=== PATIENT | male | born 1965 | race Caucasian/White ===

== ENCOUNTER 2016-06-02 20:11 | Emergency (ER) | payer SELFPAY ==
--- NOTE | 2016-06-02 21:29 | ED CLINICAL REPORT ---
Clinical Report - Physicians/Mid Levels [facility] [address] [place] [address] 06/02/2016 20:12 Patient: ROMAINE CORRAL Time Seen: 21:07. Arrived- By private vehicle. Historian- patient. HISTORY OF PRESENT ILLNESS Chief Complaint: JOINT PAIN. At its maximum, severity described as 10 / 10. When seen in the E.D., severity described as 10 / 10. This started many months ago and is still present. It was gradual in onset and has been constant and waxing/waning. (patient presents with complaints of chronic pain. He says he has pain in both of his knees as well s left shoulder. He said that this been going on for several months at least. 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 He presents requesting treatment for the pain.). REVIEW OF SYSTEMS No chills, fever, sweats, calf pain or chest pain. No cough, difficulty breathing, pedal edema, palpitations or abdominal pain. No constipation, diarrhea, nausea, vomiting or urinary problems. The patient has had pre-existing numbness of the left arm. All systems otherwise negative, except as recorded above. PAST HISTORY Problems: Myocardial Infarction. Arthritis. Medications: Ibuprofen Oral. Allergies: No Known Drug Allergy. SOCIAL HISTORY Current every day heavy tobacco smoker (cigarette)- 1 pack per day. Regular alcohol use. No drug use. FAMILY HISTORY Denies family medical history. ADDITIONAL NOTES The nursing notes have been reviewed. PHYSICAL EXAM Vital Signs: 06/02/2016 20:22 BP: 154/98. HR: 89. RR: 20. O2 saturation: 99%. Temp: 97.8 F. Pain level now: 10/10. Have been reviewed. Appearance: Alert. Eyes: Pupils equal, round and reactive to light. ENT: Pharynx normal. Neck: Neck supple. CVS: Normal heart rate and rhythm. Heart sounds normal. Respiratory: No respiratory distress. Breath sounds normal. Abdomen: No visible injury. Soft and nontender. Bowel sounds normal. No organomegaly. No mass. Back: Normal inspection. Skin: Skin warm and dry. Normal skin color. No rash. Normal skin turgor. Extremities: No calf tenderness. Left shoulder. No erythema, tenderness, swelling, laceration or ecchymosis. No joint effusion or limitation in ROM. Right knee. Neurovascular intact distally. No ligamentous laxity present. No joint effusion. No erythema, tenderness, swelling or ecchymosis. Left knee: moderate tenderness and swelling located in the posterior knee. Neurovascular intact distally. No ligamentous laxity present. No joint effusion. No limitation in ROM. Extremities atraumatic. PROGRESS AND PROCEDURES Course of Care: Patient is stable. Patient/family counseled. Old medical records reviewed. Disposition: Discharged. Condition: stable. CLINICAL IMPRESSION Chronic osteoarthritis. Ordonez's cyst; left knee. INSTRUCTIONS No driving or operating machinery while taking medication. Warnings: Further evaluation is necessary. GENERAL WARNINGS: Return or contact your physician immediately if your condition worsens or changes unexpectedly, if not improving as expected, or if other problems arise. Prescription Medications: Ultram 50 mg tablets: take 1-2 orally every 6 hours as needed for pain. Dispense twenty (20). No refills. Substitution is permissible. Follow-up: Follow up with an orthopedic surgeon- as recommended by your primary care physician- as scheduled. Understanding of the discharge instructions verbalized by patient. Follow-up with: [facility], , , [address], [place] [address] Follow up in seven days. Call for the next available appointment. (Electronically signed by Dorian Islas MD 06/05/2016 2:01)
--- NOTE | 2016-06-02 21:29 | ED NURSING NOTES ---
Clinical Report - Nurses [facility] [address] [place] [address] 06/02/2016 20:12 Patient: ROMAINE CORRAL TRIAGE Acuity: LEVEL 4. Chief Complaint: JOINT PAIN and ARM PAIN. Alert. No acute distress. SEPSIS SCREEN: Sepsis Screen. Negative (no infection suspected/documented). WHITNEY COMA SCORE: Whitney Coma Scale: 15- eyes open spontaneously (4); best verbal response- oriented x 4 (5); best motor response- obeys commands (6). --20:27 Amna Wong R.N. 20:22 06/02/16. BP: 154/98. HR: 89. RR: 20. O2 saturation: 99% on room air. Temp: 97.8 F (oral). Pain level now: 01/21. --20:27 Amna Wong R.N. Weight: 65.7 kg stated. Height/Length: 73 inches Per Patient. BMI: 19.1. --20:24 Amna Wong R.N. Medications Ibuprofen Oral. --20:23 Amna Wong R.N. Medication/allergy information source: the patient. --20:27 Amna Wong R.N. Allergies No Known Drug Allergy. --20:24 Amna Wong R.N. History Arrived by private vehicle. Historian: patient. Accompanied by (raymond). Onset. (months ago). ( Pt reports left shoulder pain and arm numbness "for four months." He also reports bilateral knee pain.). SOCIAL HX: Current every day heavy tobacco smoker- 1 pack per day. Regular alcohol use. No drug use. FALL RISK ASSESSMENT: Fall risk assessment completed. No fall risk identified. NUTRITIONAL RISK ASSESSMENT: The nutritional risk assessment revealed no deficiencies. FUNCTIONAL ASSESSMENT: Functional assessment: no impairments noted. LEARNING NEEDS ASSESSMENT: The learning needs assessment revealed no barriers. SKIN INTEGRITY ASSESSMENT: Skin integrity risk assessment completed. No skin integrity risk identified. --20:27 Amna Wong R.N. PROBLEMS: Myocardial Infarction. Arthritis. --20:24 Amna Wong R.N. Assessment GENERAL / NEURO / PSYCH: Alert. Oriented X 4. Appears in no acute distress. Patient appears calm and cooperative. RESPIRATORY: Respirations not labored. CVS: Capillary refill less than 2 seconds. GI / : Abdomen soft and nontender. SKIN: Mucous membranes are pink. Skin is warm and dry. --20:27 Amna Wong R.N. Interventions ID band on patient. To treatment room. --20:27 Amna Wong R.N. PHYSICAL ASSESSMENT 20:27 06/02/16. Ambulatory to room. GENERAL / NEURO / PSYCH: Alert. Oriented X 4. Appears in no acute distress. HEENT: Pupils equal, round and reactive to light. No facial asymmetry noted. Mucous membranes are pink. RESPIRATORY: Respirations not labored. CVS: Capillary refill less than 2 seconds. Pulses within normal limits. GI / : Abdomen soft. SKIN: Skin intact. Skin is warm and dry. Normal skin turgor. --20:27 Amna Wong R.N. NURSING PROGRESS NOTES 20:28 06/02/16. Patient gowned. Two patient identifiers checked. Call light placed in reach. Side rails up x 1. Bed placed in lowest position. Brakes of bed on. Patient ready for evaluation- chart flagged and ED physician notified. --20:28 Amna Wong R.N. DISPOSITION / DISCHARGE Departure time: 21:50 Jun 02 2016. Condition at departure: unchanged and stable. No learning barriers present. Reviewed medication(s). Prescription(s) given to the patient (Ultram). Patient verbalized understanding. Written instructions provided in [place]. The patient was discharged by the physician. He was discharged home and accompanied by spouse. He left the Emergency Department ambulatory and via private vehicle. Spouse driving. --21:54 Amna Wong R.N. Locked/Released at 06/02/2016 21:54 by Amna Wong R.N.
--- NOTE | 2016-06-02 21:29 | ED CLINICAL REPORT ---
Clinical Report - Physicians/Mid Levels [facility] [address] [place] [address] 06/02/2016 20:12 Patient: ROMAINE CORRAL Time Seen: 21:07. Arrived- By private vehicle. Historian- patient. HISTORY OF PRESENT ILLNESS Chief Complaint: JOINT PAIN. At its maximum, severity described as 10 / 10. When seen in the E.D., severity described as 10 / 10. This started many months ago and is still present. It was gradual in onset and has been constant and waxing/waning. (patient presents with complaints of chronic pain. He says he has pain in both of his knees as well s left shoulder. He said that this been going on for several months at least. 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 He presents requesting treatment for the pain.). REVIEW OF SYSTEMS No chills, fever, sweats, calf pain or chest pain. No cough, difficulty breathing, pedal edema, palpitations or abdominal pain. No constipation, diarrhea, nausea, vomiting or urinary problems. The patient has had pre-existing numbness of the left arm. All systems otherwise negative, except as recorded above. PAST HISTORY Problems: Myocardial Infarction. Arthritis. Medications: Ibuprofen Oral. Allergies: No Known Drug Allergy. SOCIAL HISTORY Current every day heavy tobacco smoker (cigarette)- 1 pack per day. Regular alcohol use. No drug use. FAMILY HISTORY Denies family medical history. ADDITIONAL NOTES The nursing notes have been reviewed. PHYSICAL EXAM Vital Signs: 06/02/2016 20:22 BP: 154/98. HR: 89. RR: 20. O2 saturation: 99%. Temp: 97.8 F. Pain level now: 10/10. Have been reviewed. Appearance: Alert. Eyes: Pupils equal, round and reactive to light. ENT: Pharynx normal. Neck: Neck supple. CVS: Normal heart rate and rhythm. Heart sounds normal. Respiratory: No respiratory distress. Breath sounds normal. Abdomen: No visible injury. Soft and nontender. Bowel sounds normal. No organomegaly. No mass. Back: Normal inspection. Skin: Skin warm and dry. Normal skin color. No rash. Normal skin turgor. Extremities: No calf tenderness. Left shoulder. No erythema, tenderness, swelling, laceration or ecchymosis. No joint effusion or limitation in ROM. Right knee. Neurovascular intact distally. No ligamentous laxity present. No joint effusion. No erythema, tenderness, swelling or ecchymosis. Left knee: moderate tenderness and swelling located in the posterior knee. Neurovascular intact distally. No ligamentous laxity present. No joint effusion. No limitation in ROM. Extremities atraumatic. PROGRESS AND PROCEDURES Course of Care: Patient is stable. Patient/family counseled. Old medical records reviewed. Disposition: Discharged. Condition: stable. CLINICAL IMPRESSION Chronic osteoarthritis. Ordonez's cyst; left knee. INSTRUCTIONS No driving or operating machinery while taking medication. Warnings: Further evaluation is necessary. GENERAL WARNINGS: Return or contact your physician immediately if your condition worsens or changes unexpectedly, if not improving as expected, or if other problems arise. Prescription Medications: Ultram 50 mg tablets: take 1-2 orally every 6 hours as needed for pain. Dispense twenty (20). No refills. Substitution is permissible. Follow-up: Follow up with an orthopedic surgeon- as recommended by your primary care physician- as scheduled. Understanding of the discharge instructions verbalized by patient. Follow-up with: [facility], , , [address], [place] [address] Follow up in seven days. Call for the next available appointment. (Electronically signed by Dorian Islas MD 06/05/2016 2:01)
--- NOTE | 2016-06-05 02:01 | ED MAR SUMMARY ---
..... Medication Administration Record [facility] [address] [place] [id number] Patient: ROMAINE CORRAL Visit ID: [id number] 50y, M Weight: 65.7 kg Height/Length: 73 in BMI: 19.1 ALLERGIES: No Known Drug Allergy
--- NOTE | 2016-06-05 02:01 | ED DISCHARGE INSTRUCTIONS ---
Patient: ROMAINE CORRAL General Instructions [facility] VisitID: [id number] [address] [place] [address] 50y, M Registration Date/Time: 06/02/2016 Chronic osteoarthritis. Ordonez's cyst; left knee. INSTRUCTIONS No driving or operating machinery while taking medication. Warnings: Further evaluation is necessary. GENERAL WARNINGS: Return or contact your physician immediately if your condition worsens or changes unexpectedly, if not improving as expected, or if other problems arise. Prescription Medications: Ultram 50 mg tablets: take 1-2 orally every 6 hours as needed for pain. Dispense twenty (20). No refills. Substitution is permissible. Follow-up: Follow up with an orthopedic surgeon- as recommended by your primary care physician- as scheduled. Understanding of the discharge instructions verbalized by patient. Follow-up with: [facility], , , [address] [place] [address], [place] [address] Follow up in seven days. Call for the next available appointment. ADDITIONAL INFORMATION Osteoarthritis Osteoarthritis (also called Degenerative Joint Disease) is the most common form of arthritis in adults over 50. It is not the same as Rheumatoid Arthritis. The exact cause is not known but may be related to excess wear and tear on the joint over a long period of time. Prior injury to that joint, or repeated stress on a joint can also cause this type of arthritis. Osteoarthritis most often affects the hands, knees, spine and hips (in that order). The most common symptoms are joint stiffness, pain and swelling. Home Care: When a joint is more sore than usual, rest that joint for a day or two. Heat is very helpful. This can be provided by taking hot baths, applying a heating pad for up to 30 minutes at a time. Because symptoms are usually worse in the morning, many patients like to take a hot bath just after awakening to relax the muscle and soothe the joints. Exercise is the most important part of home treatment for osteoarthritis. This prevents the muscles and ligaments around the joint from becoming weak and helps maintain the full range of joint motion. This limits further damage to the joint. If you are overweight, this puts a lot of extra strain on weight-bearing joints of the lower back, hips, knees, feet and ankles. Losing weight will improve your arthritis symptoms in these joints. Talk to your doctor about a safe and effective weight loss program for yourself. Anti-inflammatory medicine such as ibuprofen (Advil, Motrin) or naproxen (Aleve) is often used to treat this condition. If this alone is not helping, your doctor may prescribe a stronger medicine. If narcotic pain medicines have been prescribed, they should be used in addition to anti-inflammatory drugs and only for severe pain. Follow Up with your doctor as advised by our staff. Get Prompt Medical Attention if any of the following occur: Redness or swelling of a painful joint Fever of 100.4F (38C) or higher, or as directed by your healthcare provider Worsening joint pain BakerS Cyst The knee joint is surrounded by a capsule filled with lubricating fluid called synovial fluid. This capsule connects to a small pouch behind the knee, called a bursa. Irritation inside the joint from arthritis or a torn cartilage causes excess synovial fluid to form. This builds pressure inside the joint and the extra fluid flows into the bursa behind the knee. This creates a bulge in the back of your knee. This bulge is called a Bakers cyst. A small Bakers cyst usually causes no symptoms. A larger cyst can cause knee pain or a feeling of pressure behind the knee when you try to fully straighten or bend that joint. A Bakers cyst can leak, causing the fluid to move between the tissues of the lower leg. This results in swelling, pain and redness. Treatment of a Bakers cyst involves removal of the excess fluid and injection of a cortisone-type medicine. If excess fluid is a result of a torn cartilage, an operation to repair the cartilage may be the best treatment option. If arthritis is the cause of the excess fluid, and it does not respond to medical treatment, the cyst can be surgically removed. Home Care If you are having knee pain, stay off the affected leg as much as possible until symptoms improve. Make an ice pack (ice cubes in a plastic bag, wrapped in a towel) and apply to the painful area for 20 minutes every 1-2 hours the first day. You may continue to use ice packs 3-4 times a day for the next few days. You may use acetaminophen (Tylenol) or ibuprofen (Motrin, Advil) to control pain, unless another medicine was prescribed. [NOTE: If you have chronic liver or kidney disease or ever had a stomach ulcer or GI bleeding, talk with your doctor before using these medicines.] If crutches or a walker have been recommended, do not bear full weight on the injured leg until you can do so without pain. Check with your doctor before returning to sports or full work duties. If you were given a Velcro knee brace, you may open the brace to apply ice. Unless told otherwise, you may remove the brace to bathe and sleep. Follow Up with your doctor within 1-2 weeks or as advised by our staff. [NOTE: If x-rays were taken, they will be reviewed by a radiologist. You will be notified of any new findings that may affect your care.] Return Promptly or contact your doctor if any of the following occur: Toes or foot becomes swollen, cold, blue, numb or tingly Pain or swelling increases Warmth or redness appears over the knee Redness, swelling or pain in the calf or lower leg Tramadol Hydrochloride Oral tablet What is this medicine? TRAMADOL (TRA ma dole) is a pain reliever. It is used to treat moderate to severe pain in adults. How should I use this medicine? Take this medicine by mouth with a full glass of water. Follow the directions on the prescription label. If the medicine upsets your stomach, take it with food or milk. Do not take more medicine than you are told to take. Talk to your clinical interviewer regarding the use of this medicine in children. Special care may be needed. What side effects may I notice from receiving this medicine? Side effects that you should report to your doctor or health child day care teacher as soon as possible: allergic reactions like skin rash, itching or hives, swelling of the face, lips, or tongue breathing difficulties, wheezing confusion itching light headedness or fainting spells redness, blistering, peeling or loosening of the skin, including inside the mouth seizures Side effects that usually do not require medical attention (report to your doctor or health child day care teacher if they continue or are bothersome): constipation dizziness drowsiness headache nausea, vomiting What may interact with this medicine? Do not take this medicine with any of the following medications: MAOIs like Carbex, Eldepryl, Marplan, Nardil, and Parnate This medicine may also interact with the following medications: alcohol or medicines that contain alcohol antihistamines benzodiazepines bupropion carbamazepine or oxcarbazepine clozapine cyclobenzaprine digoxin furazolidone linezolid medicines for depression, anxiety, or psychotic disturbances medicines for migraine headache like almotriptan, eletriptan, frovatriptan, naratriptan, rizatriptan, sumatriptan, zolmitriptan medicines for pain like pentazocine, buprenorphine, butorphanol, meperidine, nalbuphine, and propoxyphene medicines for sleep muscle relaxants naltrexone phenobarbital phenothiazines like perphenazine, thioridazine, chlorpromazine, mesoridazine, fluphenazine, prochlorperazine, promazine, and trifluoperazine procarbazine warfarin What if I miss a dose? If you miss a dose, take it as soon as you can. If it is almost time for your next dose, take only that dose. Do not take double or extra doses. Where should I keep my medicine? Keep out of the reach of children. Store at room temperature between 15 and 30 degrees C (59 and 86 degrees F). Keep container tightly closed. Throw away any unused medicine after the expiration date. What should I tell my health care provider before I take this medicine? They need to know if you have any of these conditions: brain tumor depression drug abuse or addiction head injury if you frequently drink alcohol containing drinks kidney disease or trouble passing urine liver disease lung disease, asthma, or breathing problems seizures or epilepsy suicidal thoughts, plans, or attempt; a previous suicide attempt by you or a family member an unusual or allergic reaction to tramadol, codeine, other medicines, foods, dyes, or preservatives or trying to get breast-feeding What should I watch for while using this medicine? Tell your doctor or health child day care teacher if your pain does not go away, if it gets worse, or if you have new or a different type of pain. You may develop tolerance to the medicine. Tolerance means that you will need a higher dose of the medicine for pain relief. Tolerance is normal and is expected if you take this medicine for a long time. Do not suddenly stop taking your medicine because you may develop a severe reaction. Your body becomes used to the medicine. This does NOT mean you are addicted. Addiction is a behavior related to getting and using a drug for a non-medical reason. If you have pain, you have a medical reason to take pain medicine. Your doctor will tell you how much medicine to take. If your doctor wants you to stop the medicine, the dose will be slowly lowered over time to avoid any side effects. You may get drowsy or dizzy. Do not drive, use machinery, or do anything that needs mental alertness until you know how this medicine affects you. Do not stand or sit up quickly, especially if you are an older patient. This reduces the risk of dizzy or fainting spells. Alcohol can increase or decrease the effects of this medicine. Avoid alcoholic drinks. You may have constipation. Try to have a bowel movement at least every 2 to 3 days. If you do not have a bowel movement for 3 days, call your doctor or health child day care teacher. Your mouth may get dry. Chewing sugarless gum or sucking hard candy, and drinking plenty of water may help. Contact your doctor if the problem does not go away or is severe. You have been given the following additional information: Osteoarthritis Ordonez's Cyst Tramadol Hydrochloride Oral tablet No driving or operating machinery while taking medication. (Electronically signed by Dorian Islas MD 06/05/2016 2:01)
--- NOTE | 2016-06-05 02:01 | ED DISCHARGE INSTRUCTIONS ---
Patient: ROMAINE CORRAL General Instructions [facility] VisitID: [id number] [address] [place] [address] 50y, M Registration Date/Time: 06/02/2016 Chronic osteoarthritis. Ordonez's cyst; left knee. INSTRUCTIONS No driving or operating machinery while taking medication. Warnings: Further evaluation is necessary. GENERAL WARNINGS: Return or contact your physician immediately if your condition worsens or changes unexpectedly, if not improving as expected, or if other problems arise. Prescription Medications: Ultram 50 mg tablets: take 1-2 orally every 6 hours as needed for pain. Dispense twenty (20). No refills. Substitution is permissible. Follow-up: Follow up with an orthopedic surgeon- as recommended by your primary care physician- as scheduled. Understanding of the discharge instructions verbalized by patient. Follow-up with: [facility] [[email or web address]], , , [address] [place] [address], [place] [address] Follow up in seven days. Call for the next available appointment. ADDITIONAL INFORMATION Osteoarthritis Osteoarthritis (also called Degenerative Joint Disease) is the most common form of arthritis in adults over 50. It is not the same as Rheumatoid Arthritis. The exact cause is not known but may be related to excess wear and tear on the joint over a long period of time. Prior injury to that joint, or repeated stress on a joint can also cause this type of arthritis. Osteoarthritis most often affects the hands, knees, spine and hips (in that order). The most common symptoms are joint stiffness, pain and swelling. Home Care: When a joint is more sore than usual, rest that joint for a day or two. Heat is very helpful. This can be provided by taking hot baths, applying a heating pad for up to 30 minutes at a time. Because symptoms are usually worse in the morning, many patients like to take a hot bath just after awakening to relax the muscle and soothe the joints. Exercise is the most important part of home treatment for osteoarthritis. This prevents the muscles and ligaments around the joint from becoming weak and helps maintain the full range of joint motion. This limits further damage to the joint. If you are overweight, this puts a lot of extra strain on weight-bearing joints of the lower back, hips, knees, feet and ankles. Losing weight will improve your arthritis symptoms in these joints. Talk to your doctor about a safe and effective weight loss program for yourself. Anti-inflammatory medicine such as ibuprofen (Advil, Motrin) or naproxen (Aleve) is often used to treat this condition. If this alone is not helping, your doctor may prescribe a stronger medicine. If narcotic pain medicines have been prescribed, they should be used in addition to anti-inflammatory drugs and only for severe pain. Follow Up with your doctor as advised by our staff. Get Prompt Medical Attention if any of the following occur: Redness or swelling of a painful joint Fever of 100.4F (38C) or higher, or as directed by your healthcare provider Worsening joint pain BakerS Cyst The knee joint is surrounded by a capsule filled with lubricating fluid called synovial fluid. This capsule connects to a small pouch behind the knee, called a bursa. Irritation inside the joint from arthritis or a torn cartilage causes excess synovial fluid to form. This builds pressure inside the joint and the extra fluid flows into the bursa behind the knee. This creates a bulge in the back of your knee. This bulge is called a Bakers cyst. A small Bakers cyst usually causes no symptoms. A larger cyst can cause knee pain or a feeling of pressure behind the knee when you try to fully straighten or bend that joint. A Bakers cyst can leak, causing the fluid to move between the tissues of the lower leg. This results in swelling, pain and redness. Treatment of a Bakers cyst involves removal of the excess fluid and injection of a cortisone-type medicine. If excess fluid is a result of a torn cartilage, an operation to repair the cartilage may be the best treatment option. If arthritis is the cause of the excess fluid, and it does not respond to medical treatment, the cyst can be surgically removed. Home Care If you are having knee pain, stay off the affected leg as much as possible until symptoms improve. Make an ice pack (ice cubes in a plastic bag, wrapped in a towel) and apply to the painful area for 20 minutes every 1-2 hours the first day. You may continue to use ice packs 3-4 times a day for the next few days. You may use acetaminophen (Tylenol) or ibuprofen (Motrin, Advil) to control pain, unless another medicine was prescribed. [NOTE: If you have chronic liver or kidney disease or ever had a stomach ulcer or GI bleeding, talk with your doctor before using these medicines.] If crutches or a walker have been recommended, do not bear full weight on the injured leg until you can do so without pain. Check with your doctor before returning to sports or full work duties. If you were given a Velcro knee brace, you may open the brace to apply ice. Unless told otherwise, you may remove the brace to bathe and sleep. Follow Up with your doctor within 1-2 weeks or as advised by our staff. [NOTE: If x-rays were taken, they will be reviewed by a radiologist. You will be notified of any new findings that may affect your care.] Return Promptly or contact your doctor if any of the following occur: Toes or foot becomes swollen, cold, blue, numb or tingly Pain or swelling increases Warmth or redness appears over the knee Redness, swelling or pain in the calf or lower leg Tramadol Hydrochloride Oral tablet What is this medicine? TRAMADOL (TRA ma dole) is a pain reliever. It is used to treat moderate to severe pain in adults. How should I use this medicine? Take this medicine by mouth with a full glass of water. Follow the directions on the prescription label. If the medicine upsets your stomach, take it with food or milk. Do not take more medicine than you are told to take. Talk to your quality lead regarding the use of this medicine in children. Special care may be needed. What side effects may I notice from receiving this medicine? Side effects that you should report to your doctor or health direct care specialist as soon as possible: allergic reactions like skin rash, itching or hives, swelling of the face, lips, or tongue breathing difficulties, wheezing confusion itching light headedness or fainting spells redness, blistering, peeling or loosening of the skin, including inside the mouth seizures Side effects that usually do not require medical attention (report to your doctor or health direct care specialist if they continue or are bothersome): constipation dizziness drowsiness headache nausea, vomiting What may interact with this medicine? Do not take this medicine with any of the following medications: MAOIs like Carbex, Eldepryl, Marplan, Nardil, and Parnate This medicine may also interact with the following medications: alcohol or medicines that contain alcohol antihistamines benzodiazepines bupropion carbamazepine or oxcarbazepine clozapine cyclobenzaprine digoxin furazolidone linezolid medicines for depression, anxiety, or psychotic disturbances medicines for migraine headache like almotriptan, eletriptan, frovatriptan, naratriptan, rizatriptan, sumatriptan, zolmitriptan medicines for pain like pentazocine, buprenorphine, butorphanol, meperidine, nalbuphine, and propoxyphene medicines for sleep muscle relaxants naltrexone phenobarbital phenothiazines like perphenazine, thioridazine, chlorpromazine, mesoridazine, fluphenazine, prochlorperazine, promazine, and trifluoperazine procarbazine warfarin What if I miss a dose? If you miss a dose, take it as soon as you can. If it is almost time for your next dose, take only that dose. Do not take double or extra doses. Where should I keep my medicine? Keep out of the reach of children. Store at room temperature between 15 and 30 degrees C (59 and 86 degrees F). Keep container tightly closed. Throw away any unused medicine after the expiration date. What should I tell my health care provider before I take this medicine? They need to know if you have any of these conditions: brain tumor depression drug abuse or addiction head injury if you frequently drink alcohol containing drinks kidney disease or trouble passing urine liver disease lung disease, asthma, or breathing problems seizures or epilepsy suicidal thoughts, plans, or attempt; a previous suicide attempt by you or a family member an unusual or allergic reaction to tramadol, codeine, other medicines, foods, dyes, or preservatives or trying to get breast-feeding What should I watch for while using this medicine? Tell your doctor or health direct care specialist if your pain does not go away, if it gets worse, or if you have new or a different type of pain. You may develop tolerance to the medicine. Tolerance means that you will need a higher dose of the medicine for pain relief. Tolerance is normal and is expected if you take this medicine for a long time. Do not suddenly stop taking your medicine because you may develop a severe reaction. Your body becomes used to the medicine. This does NOT mean you are addicted. Addiction is a behavior related to getting and using a drug for a non-medical reason. If you have pain, you have a medical reason to take pain medicine. Your doctor will tell you how much medicine to take. If your doctor wants you to stop the medicine, the dose will be slowly lowered over time to avoid any side effects. You may get drowsy or dizzy. Do not drive, use machinery, or do anything that needs mental alertness until you know how this medicine affects you. Do not stand or sit up quickly, especially if you are an older patient. This reduces the risk of dizzy or fainting spells. Alcohol can increase or decrease the effects of this medicine. Avoid alcoholic drinks. You may have constipation. Try to have a bowel movement at least every 2 to 3 days. If you do not have a bowel movement for 3 days, call your doctor or health direct care specialist. Your mouth may get dry. Chewing sugarless gum or sucking hard candy, and drinking plenty of water may help. Contact your doctor if the problem does not go away or is severe. You have been given the following additional information: Osteoarthritis Ordonez's Cyst Tramadol Hydrochloride Oral tablet No driving or operating machinery while taking medication. (Electronically signed by Dorian Islas MD 06/05/2016 2:01)
--- NOTE | 2016-06-05 02:01 | ED MED RECONCILIATION SUMMARY ---
Patient: ROMAINE CORRAL Medication Reconciliation Report [facility] VisitID: [id number] [address] [place] [address] 50y, M Registration Date/Time: 06/02/2016 Weight: 65.7 kg Height/Length: 73 in. BMI: 19.1 ALLERGIES: No Known Drug Allergy The patient's Home Medications are listed below: THE FOLLOWING MEDICATIONS NEED TO BE RECONCILED: Ibuprofen Oral The source(s) of the original Home Medication information: patient The following Medications were given to the patient in the Emergency Department: None. The following Medications were prescribed to the patient: Ultram 50 mg tablets: take 1-2 orally every 6 hours as needed for pain. Dispense twenty (20). No refills. Substitution is permissible. -- Dorian Islas MD
--- NOTE | 2016-06-05 02:01 | ED MED RECONCILIATION SUMMARY ---
Patient: ROMAINE CORRAL Medication Reconciliation Report [facility] VisitID: [id number] [address] [place] [address] 50y, M Registration Date/Time: 06/02/2016 Weight: 65.7 kg Height/Length: 73 in. BMI: 19.1 ALLERGIES: No Known Drug Allergy The patient's Home Medications are listed below: THE FOLLOWING MEDICATIONS NEED TO BE RECONCILED: Ibuprofen Oral The source(s) of the original Home Medication information: patient The following Medications were given to the patient in the Emergency Department: None. The following Medications were prescribed to the patient: Ultram 50 mg tablets: take 1-2 orally every 6 hours as needed for pain. Dispense twenty (20). No refills. Substitution is permissible. -- Dorian Islas MD
--- NOTE | 2016-06-05 02:01 | ED MAR SUMMARY ---
..... Medication Administration Record [facility] [address] [place] [id number] Patient: ROMAINE CORRAL Visit ID: [id number] 50y, M Weight: 65.7 kg Height/Length: 73 in BMI: 19.1 ALLERGIES: No Known Drug Allergy
== END 2016-06-02 21:50 | disposition home or self-care (01) ==
LOC: ED SRH 20:11
DX: M17.9 Osteoarthritis of knee, unspecified (principal); M71.22 Synovial cyst of popliteal space [Baker], left knee; I25.2 Old myocardial infarction; F17.210 Nicotine dependence, cigarettes, uncomplicated; Z79.1 Long term (current) use of non-steroidal anti-inflammatories (NSAID)